=== PATIENT | male | born 1955 | race Caucasian/White ===

== ENCOUNTER 2021-06-06 20:45 | Emergency (ER) | payer MEDICARE, SELFPAY ==
[2021-06-06 20:46] VITALS: BP 124/64; PULSE 106; RESP 20; TEMP 36.2; O2SAT 88; BMI 30.7
--- NOTE | 2021-06-06 20:57 | EDS_ITS ---
HPI History of Present Illness Chief Complaint: General Illness Informant: patient Onset/Context/Timing Onset: Today and Hours Context: Sudden Onset Timing: Continuous Narrative Narrative: 65-year-old male history of lung CA with metastases on hospice. This morning some type of feeding tube which looks like a jejunostomy tube from his right side of his abdomen came out and he was brought in the emergency department to see if that could be replaced. He denies any pain. He states he had a recent stroke and he aspirates when he swallows so that is why he has the feeding tube. He is also had a recent major abdominal surgery with a healing wound. He is limited on his knowledge of what took place and what kind of tube this was. Patient's daughter arrived. This is some type of the jejunostomy tube that was placed intraoperatively. She had spoken at length today with the physician's office Dr. Pedro Menendez at [facility] today. Per the family has been set up for interventional radiology procedure tomorrow to replace the tube. They have no way of getting him there. They were told that we could transfer him there and he can have the procedure done tomorrow. I discussed this with the general surgeon on-call Dr. Jackson. He had little to offer the patient this evening. They have a significant bed situation so he could not be accepted in transfer for dir ect admission. Patient will be sent to their emergency department and the surgical oncologist for evaluating possible admission for the procedure to be done tomorrow. I spoke to the transfer line at [facility]. Also discussed all this with the patient and his daughter and he wants to be transferred. Prior similar symptoms: No Recent Illness/Hospitalization: Yes [facility] Medical History (Updated 06/06/21 @ 22:[address] Viktor Gardner MD) Metastatic primary lung cancer Stroke/cerebrovascular accident Allergy/AdvReac Type Severity Reaction Status Date / Time No Known Allergies Allergy Verified 06/06/21 20:53 Social History Smoking Status: Current every day smoker tobacco type: cigarettes ROS ROS ED ROS Narrative Patient denies any nausea, vomiting, diarrhea or fever. States only reason is here is to get his tube replaced if it is possible. Review of Systems ROS Unobtainable: Denies due to encephalopathy Constitutional Constitutional ED: Denies fever(s) Eyes Eyes: Denies change in vision ENT ENT ED: Denies ear pain Cardiovascular Cardiovascular: Denies chest pain Respiratory/Chest Respiratory/Chest: Denies dyspnea Gastrointestinal Gastrointestinal: Denies abdominal pain Genitourinary Genitourinary ED: Denies dysuria Musculoskeletal Musculoskeletal: Denies myalgias Integumentary Denies rash Neurologic Neurologic: Denies headache(s) Psychiatric Psychiatric: Denies depression Endocrine Endocrinology: Denies polyuria Allergic/Immunologic Allergic/Immunologic ED: Denies urticaria EXAM Physical Exam Narrative Exam Narrative: Six 5-year-old male no acute distress vital signs stable. He is afebrile. His pulse ox is 88 on room air he has known lung CA with mets I suspect his underlying COPD is in no respiratory distress. HEENT exam moist with memories. Neck nontender. Lungs coarse breath sounds bilaterally with rhonchi. Heart regular rhythm rate about 105 no murmur. Abdomen soft nondistended normal bowel sounds no peritoneal signs. Patient has a large exploratory laparotomy incision which is healing there is still retention sutures in place. There is also a ostomy that reportedly this feeding tube came out of it is on the right upper quadrant of his abdomen. It looks to far to the right to be a gastrostomy tube. His abdomen is not specifically tender. He has bowel sounds. There is no signs of obstruction. Patient is moving all four extremities. Neurologically is awake and alert. Const Vital Signs: 06/06/21 20:46 06/06/21 20:58 06/06/21 21:50 Temperature 97.1 F L Temperature Source Temporal Pulse Rate 106 H 99 Respiratory Rate 20 H 19 H Blood Pressure 124/64 H 101/59 L Blood Pressure Mean 84 73 Pulse Ox 88 94 91 Oxygen Delivery Method Room Air Nasal Cannula Nasal Cannula Oxygen Flow Rate (L/min) 4 4 Positive well nourished and well developed; Negative for cachectic, contractures or unkempt General Appearance ED: well developed and NAD; Negative for unkempt, cachectic, contractures, cyanotic or diaphoretic Nutritional Appearance: Negative for cachectic HEENT Reports moist mucous membranes Negative for trauma or tenderness Eyes PERRL and EOMs intact bilaterally Neck no lymphadenopathy and supple Chest Wall inspection of chest normal and palpation of chest normal Resp normal respiratory effort and No clear to auscultation bilaterally Effort and Inspection: Negative for pain with movement Auscultation: rhonchi; Negative for rales or wheezes Cardio regular rate, S1 normal heart sound, S2 normal heart sound and no murmurs Rate: tachycardic GI normal to inspection, nondistended, normoactive bowel sounds, non-tender and non-distended GI Narrative: Midline incision with retention sutures in place. Inspection: Negative for abdominal distention Auscultation: normoactive bowel sounds Palpation: soft; Negative for tender, guarding or rebound tenderness present Back/Spine no CVA tenderness General Back: Negative for CVA tenderness Extremity normal to inspection General Extremety ED: Negative for edema or tenderness General Extremity: Negative for edema Neuro oriented x3 Sensorium / Orientation: alert; Negative for orientation impaired, lethargic or stuporous Motor Exam: strength 5/5 throughout Psych mental status grossly normal Appearance: Negative for unkempt Skin no rashes or lesions noted and no wounds MDM MDM MDM Narrative Medical decision making narrative: 65-year-old male on hospice for lung CA with mets of recent abdominal surgery and some type of feeding tube in place. Were trying to get old records from [facility] to determine what type of tube was in place. Also his family is reportedly coming to the emergency department I will speak to them once they arrive. I do not think at this time this is something I can place. Discharge Plan Triage Chief Complaint: General Illness ED Provider: Viktor Gardner Dx/Rx/DC Orders Clinical Impression: Complication of feeding tube Primary Care Provider: Titi Silveira Referrals: Titi Silveira MD [Primary Care Provider] - Disposition Disposition: Acute Care Hospital
[2021-06-06 20:58] VITALS: O2SAT 94
[2021-06-06 21:50] VITALS: BP 101/59; PULSE 99; RESP 19; O2SAT 91
[2021-06-06 22:25] VITALS: BP 104/77; PULSE 102; RESP 18; O2SAT 96
[2021-06-06 23:31] VITALS: BP 129/75; PULSE 106; RESP 20; O2SAT 93
== END 2021-06-07 00:44 | disposition short-term general hospital (02) ==
PROVIDERS: Emergency Provider Emergency Medicine; PCP Student in an Organized Health Care Education/Training Program
DX: K94.19 Other complications of enterostomy (principal); C34.90 Malignant neoplasm of unspecified part of unspecified bronchus or lung; C79.9 Secondary malignant neoplasm of unspecified site; I63.9 Cerebral infarction, unspecified; I69.391 Dysphagia following cerebral infarction; F17.210 Nicotine dependence, cigarettes, uncomplicated; Z46.59 Encounter for fitting and adjustment of other gastrointestinal appliance and device
CPT/HCPCS: 99285